=== PATIENT | male | born 1995 | race Caucasian/White ===

== ENCOUNTER 2016-10-23 19:49 | Emergency (ER) | payer OTHER ==
[~2016-10-23] VITALS: Ht 167.6 cm; Wt 102.1 kg
[2016-10-23] MEDS ORDERED: IV NS 0.9% 1,000 ML ONE (20:09)
[2016-10-23] MEDS ORDERED: IV SET PRIMARY 1 EA INFUS.SET MC ONE (20:09)
--- NOTE | 2016-10-23 20:10 | NUR ---
PT BIB [facility] C/O AMS POSSIBLY 2/2 ETOH OR XANAX WITHDRAWAL PER FAMILY. ALERT AND VERBALLY RESPONSIVE BUT DISORIENTED. NAD NOTED. RESP EVEN UNLABORED BUT APPEARS ANXIOUS. SKIN WARM NONDIAPHORETIC. NO NEURO DEFICITS. NO SZ ACTIVITY. IN ER BED 11.
[2016-10-23 20:26] LABS: BASOPHILS # (AUTO) 0.2 /CMM (0.0-0.2); BASOPHILS % (AUTO) 1.3 % (0.0-2.0); EOSINOPHILS # (AUTO) 0.1 /CMM (0.0-0.7); EOSINOPHILS % (AUTO) 0.8 % (0.0-6.0); HEMATOCRIT 48 % (39-51); HEMOGLOBIN 16.4 g/dL (13.5-17.5); LYMPHOCYTES # (AUTO) 3.9 /CMM (0.8-4.8); LYMPHOCYTES % (AUTO) 22.7 % (20.0-44.0); MEAN CORPUSCULAR HEMOGLOBIN 31 PG (26.0-33.0); MEAN CORPUSCULAR HGB CONC 34 g/dl (31.0-36.0); MEAN CORPUSCULAR VOLUME 92 fL (80-96); MONOCYTES # (AUTO) 0.9 /CMM (0.1-1.30); MONOCYTES % (AUTO) 5.4 % (2.0-12.0); NEUTROPHILS % (AUTO) 69.8 % (43.0-81.0); PLATELET COUNT (AUTO) 477 /CMM (150-450); RDW COEFFICIENT OF VARIATION 12.5 (11.5-15.0); RED BLOOD CELL COUNT(AUTO) 5.23 MIL/uL (4.5-6.0); WHITE BLOOD COUNT (AUTO) 17.1 K/uL (4.3-11.0)
[2016-10-23] MEDS ORDERED: IV NS 0.9% 1,000 ML BAG IV ONE (20:30)
[2016-10-23] MEDS ORDERED: ONDANSETRON HCL/PF 4 MG/2 ML VIAL IVP ONE (20:30)
[2016-10-23 20:47] LABS: CALCIUM, SERUM 9.4 mg/dL (8.5-10.1); CARBON DIOXIDE 17 mmol/L (21-32); CHLORIDE 102 mmol/L (98-107); CREATININE 1.8 mg/dL (0.6-1.3); GLUCOSE 166 mg/dL (74-106); POTASSIUM 3.7 mmol/L (3.5-5.1); SODIUM SERUM 141 mmol/L (136-145); UREA NITROGEN, BLOOD 12 mg/dL (7-18)
[2016-10-23 20:53] LABS: ACETAMINOPHEN 8 ug/ml (10-30); ALANINE AMINOTRANSFERASE 25 U/L (12-78); ALBUMIN 4.7 g/dL (3.4-5.0); ALCOHOL, BLOOD < 3 mg/dL (0-0); ALKALINE PHOSPHATASE 84 U/L (46-116); ASPARTATE AMINOTRANSFERASE 22 U/L (15-37); BILIRUBIN,DIRECT 0.1 mg/dL (0.0-0.2); BILIRUBIN,TOTAL 0.5 mg/dL (0.2-1.0); SALICYLATE 2.2 mg/dL (2.8-20.0); TOTAL PROTEIN, SERUM 8.3 g/dL (6.4-8.2)
--- NOTE | 2016-10-23 22:25 | NUR ---
Patient discharged to home in stable condition. Written and verbal after care instructions given. Patient verbalizes understanding of instruction. IV removed. Catheter intact and site benign. Pressure and 4x4 applied to site. No bleeding noted. AMBULATORY WITH STEADY GAIT.
[2016-10-23 22:38] VITALS: BP 137/76
[2016-10-23 22:46] LABS: APPEARANCE,URINE SL CLOUDY (CLEAR); BILIRUBIN,URINE NEGATIVE (NEGATIVE); BLOOD, URINE NEGATIVE Ery/uL (NEGATIVE); COLOR,URINE YELLOW (YELLOW); KETONES,URINE NEGATIVE (NEGATIVE); LEUKOCYTE ESTERASE ,URINE NEGATIVE (NEGATIVE); NITRITE, URINE NEGATIVE (NEGATIVE); PROTEIN,URINE 2+ mg/dl (NEGATIVE); UGLUCOSE NEGATIVE (NEGATIVE); UROBILINOGEN,URINE 0.2 EU/dL (0.2)
[2016-10-23 23:02] LABS: BACTERIA,URINE None seen /HPF (None Seen); RBC,URINE 0-2 /HPF (0-2); WBC,URINE 0-2 /HPF (0-3)
[2016-10-23 23:03] LABS: MUCUS,URINE Moderate /LPF (None Seen); SPERM,URINE Many /HPF (None Seen); SQUAMOUS EPITHELIAL CELL,UR Moderate /HPF (None Seen)
[2016-10-23 23:04] LABS: URINE AMORPHOUS PHOSPHATES Moderate /HPF (None Seen)
== END 2016-10-23 22:38 | disposition home or self-care (01) ==
LOC: ER 19:51
DX: F15.93 Other stimulant use, unspecified with withdrawal (principal); R56.9 Unspecified convulsions
CPT/HCPCS: 36415; 70450; 71010; 80048; 80076; 80305; 80329; 81001; 85025; 93005; 96360; 99285; A4606; G0480 ×2; J7030; Z7610; 81000-TC; G6039-TC